=== PATIENT | female | born 1950 | race Caucasian/White ===

== ENCOUNTER 2016-12-13 15:04 | Emergency (ER) | payer MEDICARE, OTHER ==
[~2016-12-13] VITALS: Ht 157.5 cm; Wt 74.8 kg
[~2016-12-13 15:04] MED LIST: CARI-277 PO; PERCOT PO; PROG200C6 PO; THYR60TA PO; ZOLP10TA PO
[2016-12-13] MEDS ORDERED: SODIUM CHLORIDE 0.9% 500 ML IV ONE (15:34)
[2016-12-13] MEDS ORDERED: LORazepam 2MG/ML-1ML VIAL IV ONE (15:45)
[2016-12-13 16:14] LABS: Basophils # (auto) 0 uL; Basophils % (auto) 0.4 % (0.0-2.0); CONDITION Y; Eosinophils # (auto) 0.1 uL; Eosinophils % (auto) 1.8 % (0.0-7.0); Hemoglobin 13.6 g/dL (12.2-16.2); Lymphocytes # (auto) 1.9 uL; Lymphocytes % (auto) 26.6 % (10.0-50.0); Mean Corpuscular Hemoglobin 30.3 pg (28.0-32.0); Mean Corpuscular Hgb Conc. 33.1 g/dL (32.0-36.0); Mean Corpuscular Volume 91.5 fL (80.0-100.0); Mean Platelet Volume 9.3 fL (7.4-10.4); Monocytes # (auto) 0.8 uL; Neutrophils # (auto) 4.4 uL; Neutrophils % (auto) 60.2 % (37.0-80.0); Platelet Count (auto) 284 10^3/uL (140-450); Red Cell Distribution Width 15.1 % (11.6-16.0); White Blood Cell 7.3 10^3/uL (4.4-10.8)
[2016-12-13 16:33] LABS: Albumin 2.9 g/dL (3.4-5.0); BUN/Creatinine Ratio 16.3; Calcium 8.8 mg/dL (8.5-10.1); Potassium 3.3 mmol/L (3.5-5.1)
[2016-12-13 16:35] LABS: Bilirubin, Total 0.5 mg/dL (0.2-1.0); Total Protein 6.6 g/dL (6.4-8.2)
[2016-12-13] MEDS ORDERED: POTASSIUM CHL 20MEQ/100ML 100 ML IV ONE (17:45)
[2016-12-13] MEDS ORDERED: HYDROmorphone HCL 2 MG/ML VL IV ONE (21:00)
[2016-12-13] MEDS ORDERED: ONDANSETRON HCL 4 MG/2 ML VIAL IV ONE (21:00)
[2016-12-13 22:55] VITALS: BP 134/78
== END 2016-12-14 00:43 | disposition home or self-care (01) ==
LOC: EDBD 15:04 → ER 15:05
DX: E87.6 Hypokalemia (principal); M62.831 Muscle spasm of calf; G89.4 Chronic pain syndrome; Z90.710 Acquired absence of both cervix and uterus
CPT/HCPCS: 36415; 72131; 80053; 85025; 94761; 96361; 96365; 96366; 96375; 99285; J1170; J2060; J2405; J3480

== ENCOUNTER 2022-01-14 09:04 | Day surgery (SDC) | payer MEDICARE, OTHER ==
[2022-01-11 14:40] LABS: Basophils # (auto) 0 10 ^3/uL (0-0.2); Basophils % (auto) 0.6 % (0.0-2.0); Eosinophils # (auto) 0.1 10 ^3/uL (0-0.8); Hematocrit 35.3 % (36.0-46.0); Hemoglobin 11.3 g/dL (12.2-16.2); Lymphocytes # (auto) 1.5 10 ^3/uL (0.4-5.4); Lymphocytes % (auto) 30.3 % (10.0-50.0); Mean Corpuscular Hemoglobin 29.4 pg (28.0-32.0); Mean Corpuscular Volume 91.7 fL (80.0-100.0); Monocytes # (auto) 0.7 10 ^3/uL (0-1.3); Monocytes % (auto) 13.4 % (0.0-12.0); Neutrophils # (auto) 2.7 10 ^3/uL (1.6-8.6); Neutrophils % (auto) 53.7 % (37.0-80.0); Nucleated Red Blood Cells % 0.1 %; Red Blood Cells 3.85 10^6/uL (4.0-5.20); Red Cell Distribution Width 13.6 % (11.8-14.3); White Blood Cell 5.1 10^3/uL (4.4-10.8)
[2022-01-11 14:46] LABS: Urine Bacteria FEW /hpf (None Seen); Urine Blood Negative /uL (Negative); Urine Hyaline Cast FEW /lpf (0 - 2); Urine WBC 198 /hpf (0 - 5)
[2022-01-11 16:09] LABS: Albumin 3.8 g/dL (3.4-5.0); Calcium 8.8 mg/dL (8.5-10.1); Potassium 4.9 mmol/L (3.5-5.1)
[2022-01-11 16:13] LABS: BUN/Creatinine Ratio 15.9; Bilirubin, Total 0.4 mg/dL (0.2-1.0); Total Protein 7.5 g/dL (6.4-8.2)
[~2022-01-14] VITALS: Ht 157.5 cm; Wt 66.2 kg
[~2022-01-14 09:04] MED LIST changes: -CARI-277 PO; +CHOL20009 PO; +FLUO20TA34 PO; +GABA-339 PO; +HYDR-4798 PO; +IBUP800T27 PO; +LEVO25TA6 PO; +MULT1TAB70 PO; -PERCOT PO; -PROG200C6 PO; -THYR60TA PO; +TIZA4CAP PO; -ZOLP10TA PO
[2022-01-14] MEDS ORDERED: LIDOCAINE VISCOUS 2% 15ML UD ONE (10:00)
[2022-01-14] MEDS ORDERED: fentaNYL CITRATE 100 MCG/2 ML VL ONE (10:09)
[2022-01-14] MEDS ORDERED: MIDAZOLAM HCL 2MG/2ML 2ml VIAL (1mg/ml) ONE (10:09)
[2022-01-14] MEDS ORDERED: ePHEDrine SULFATE 50 MG/ML AMP IV PRN (10:15)
[2022-01-14] MEDS ORDERED: LABETALOL HCL 5 MG/ML 4ML SYRINGE IV PRN (10:15)
[2022-01-14] MEDS ORDERED: ONDANSETRON HCL 4 MG/2 ML VIAL IV PRN (10:15)
[2022-01-14] MEDS ORDERED: MIDAZOLAM HCL 2MG/2ML 2ml VIAL (1mg/ml) IV PRN (10:15)
[2022-01-14] MEDS ORDERED: HYDROmorphone HCL 2 MG/ML VL/or syr IV PRN (10:15)
[2022-01-14] MEDS ORDERED: MORPHINE SULFATE 4 MG/ML SYR/VIAL IV PRN (10:15)
[2022-01-14] MEDS ORDERED: DexAMETHasone SOD PHOS 10MG/1ML VIAL INJ ONE (10:34)
[2022-01-14] MEDS ORDERED: PROPOFOL 10 MG/ML 20 ML IV ONE (10:34)
[2022-01-14 10:55] VITALS: BP 139/80
== END 2022-01-14 11:25 | disposition home or self-care (01) ==
LOC: GI 09:04
PROVIDERS: ATTEND Internal Medicine Gastroenterology
DX: R10.9 Unspecified abdominal pain (principal); K29.50 Unspecified chronic gastritis without bleeding; E03.9 Hypothyroidism, unspecified; F43.10 Post-traumatic stress disorder, unspecified; F32.A Depression, unspecified; G89.29 Other chronic pain; Z90.710 Acquired absence of both cervix and uterus; Z98.890 Other specified postprocedural states; Z79.899 Other long term (current) drug therapy; Z20.822 Contact with and (suspected) exposure to COVID-19; Z98.84 Bariatric surgery status; Z90.49 Acquired absence of other specified parts of digestive tract; Z98.51 Tubal ligation status
CPT/HCPCS: 36415; 43239; 80053; 81001; 85025; 85730; 88305; 88342; J1100; J2250; J2704; J3010; J7030; U0003

== ENCOUNTER 2022-11-03 16:28 | Emergency (ER) | payer MEDICARE, OTHER ==
[~2022-11-03] VITALS: Ht 157.5 cm; Wt 68.0 kg
[~2022-11-03 16:28] MED LIST changes: -FLUO20TA34 PO; +FLUO20TA36 PO; +IBUP-1456 PO; -IBUP800T27 PO
[2022-11-03] MEDS ORDERED: HYDROcodone-ACET 5/325MG TAB PO ONE (17:00)
[2022-11-03] MEDS ORDERED: IBUPROFEN 400 MG TAB PO ONE (17:00)
[2022-11-03] MEDS ORDERED: TETANUS-DIPTH-ACEL PERTUSSIS 0.5ML SYR Tdap IM ONE (18:30)
[2022-11-03 19:13] VITALS: BP 103/59
== END 2022-11-03 19:49 | disposition home or self-care (01) ==
LOC: ER 16:28
DX: S40.012A Contusion of left shoulder, initial encounter (principal); Z91.040 Latex allergy status; Z79.899 Other long term (current) drug therapy; Z90.710 Acquired absence of both cervix and uterus; W19.XXXA Unspecified fall, initial encounter; Y93.89 Activity, other specified; Y92.89 Other specified places as the place of occurrence of the external cause; Y99.8 Other external cause status
CPT/HCPCS: 73030; 90471; 90715

== ENCOUNTER 2022-12-29 06:06 | Day surgery (SDC) | payer MEDICARE, OTHER ==
[2022-12-28 13:22] LABS: Basophils # (auto) 0 10 ^3/uL (0-0.2); Basophils % (auto) 0.6 % (0.0-2.0); Eosinophils # (auto) 0.1 10 ^3/uL (0-0.8); Eosinophils % (auto) 1.7 % (0.0-7.0); Hematocrit 33.8 % (36.0-46.0); Hemoglobin 10.6 g/dL (12.2-16.2); Lymphocytes # (auto) 1.5 10 ^3/uL (0.4-5.4); Lymphocytes % (auto) 26.5 % (10.0-50.0); Mean Corpuscular Hemoglobin 27.2 pg (28.0-32.0); Mean Corpuscular Hgb Conc. 31.3 g/dL (32.0-36.0); Mean Corpuscular Volume 86.8 fL (80.0-100.0); Monocytes # (auto) 0.6 10 ^3/uL (0-1.3); Monocytes % (auto) 9.7 % (0.0-12.0); Neutrophils # (auto) 3.6 10 ^3/uL (1.6-8.6); Neutrophils % (auto) 61.5 % (37.0-80.0); Red Blood Cells 3.89 10^6/uL (4.0-5.20); Red Cell Distribution Width 16.7 % (11.8-14.3); White Blood Cell 5.8 10^3/uL (4.4-10.8)
[2022-12-28 13:34] LABS: Urine Bacteria NONE SEEN /hpf (None Seen); Urine Blood Negative /uL (Negative); Urine Clarity HAZY (Clear); Urine Color Colorless (Yellow); Urine Protein, UAD Negative (Negative); Urine Specific Gravity 1.012 (1.001-1.035); Urine Urobilinogen Normal (Negative); Urine WBC 27 /hpf (0 - 5); Urine pH 5.5 (5.0-8.0)
[2022-12-28 13:39] LABS: INR 1.01 (0.9-1.15); Partial Thromboplastin Time 26.8 SEC (24.5-34.5); Prothrombin Time 10.6 sec (9.3-11.8)
[2022-12-28 14:06] LABS: Alanine Aminotransferase 23 U/L (7-40); Albumin 4.4 g/dL (3.2-4.8); Alkaline Phosphatase 94 U/L (46-116); Anion Gap 6.7 (5-15); Aspartate Aminotransferase 24 U/L (13-40); BUN/Creatinine Ratio 11.1 (10.0-20.0); Blood Urea Nitrogen 8 mg/dL (9-23); Calcium 9.3 mg/dL (8.5-10.1); Carbon Dioxide 28.3 mmol/L (20-30); Chloride 107 mmol/L (98-107); Glucose 97 mg/dL (74-106); Sodium 142 mmol/L (136-145)
[2022-12-28 14:07] LABS: Total Protein 7.2 g/dL (5.7-8.2)
[2022-12-28 15:08] LABS: Bilirubin, Total 0.5 mg/dL (0.2-1.0)
[~2022-12-29] VITALS: Ht 157.5 cm; Wt 66.2 kg
[~2022-12-29 06:06] MED LIST changes: -FLUO20TA36 PO; -GABA-339 PO; +GABA800T97 PO; -TIZA4CAP PO; +TRAZ-181 PO
[2022-12-29] MEDS ORDERED: ceFAZolin 1GM/50ML 100 ML IV ONE (06:41)
[2022-12-29] MEDS ORDERED: ROPIVACAINE 0.5% (5MG/ML) 20ML AMPULE IJ ONE (07:07)
[2022-12-29] MEDS ORDERED: methylPREDNISolone ACETATE 80 MG/ML VL ONE (07:44)
[2022-12-29] MEDS ORDERED: METOCLOPRAMIDE HCL 5MG/ml INJ 2ml VIAL IV PRN (07:45)
[2022-12-29] MEDS ORDERED: MORPHINE SULFATE INJ 2 MG/ml SYRG IV PRN (07:45)
[2022-12-29] MEDS ORDERED: HYDROmorphone HCL 2 MG/ML VL/or syr IV PRN ×2 (07:45)
[2022-12-29] MEDS ORDERED: LIDOCAINE 1%-Mpf/Epinephrine 1:200,000 30ml VIAL ONE (08:02)
[2022-12-29] MEDS ORDERED: BACITRACIN TOP OINT 1 UD PKG TOP ONE (08:41)
[2022-12-29 08:53] VITALS: TEMP 97.4
[2022-12-29 09:45] VITALS: BP 133/68; PULSE 85; RESP 20; O2SAT 96
== END 2022-12-29 09:55 | disposition home or self-care (01) ==
LOC: SUR 06:06
PROVIDERS: ATTEND Podiatrist Foot & Ankle Surgery
DX: M65.871 Other synovitis and tenosynovitis, right ankle and foot (principal); M19.071 Primary osteoarthritis, right ankle and foot; G89.29 Other chronic pain; M75.01 Adhesive capsulitis of right shoulder
CPT/HCPCS: 20605; 29895; 36415; 80053; 81001; 85025; 85610; 85730; 88305; J0690; J1040; J2001; J2795

== ENCOUNTER 2023-02-16 06:24 | Day surgery (SDC) | payer MEDICARE, OTHER ==
[2023-02-10 14:27] LABS: Basophils # (auto) 0 10 ^3/uL (0-0.2); Basophils % (auto) 0.5 % (0.0-2.0); Eosinophils # (auto) 0.1 10 ^3/uL (0-0.8); Eosinophils % (auto) 2.5 % (0.0-7.0); Hemoglobin 9.8 g/dL (12.2-16.2); Lymphocytes # (auto) 1.7 10 ^3/uL (0.4-5.4); Lymphocytes % (auto) 28.8 % (10.0-50.0); Mean Corpuscular Hemoglobin 27.4 pg (28.0-32.0); Mean Corpuscular Hgb Conc. 31.6 g/dL (32.0-36.0); Mean Corpuscular Volume 86.8 fL (80.0-100.0); Monocytes # (auto) 0.7 10 ^3/uL (0-1.3); Monocytes % (auto) 11.7 % (0.0-12.0); Neutrophils # (auto) 3.3 10 ^3/uL (1.6-8.6); Neutrophils % (auto) 56.5 % (37.0-80.0); Red Blood Cells 3.57 10^6/uL (4.0-5.20); Red Cell Distribution Width 17.6 % (11.8-14.3); White Blood Cell 5.8 10^3/uL (4.4-10.8)
[2023-02-10 14:56] LABS: INR 1.04 (0.9-1.15); Partial Thromboplastin Time 26.9 SEC (24.5-34.5); Prothrombin Time 10.9 sec (9.3-11.8)
[2023-02-10 14:57] LABS: Alanine Aminotransferase 14 U/L (7-40); Alkaline Phosphatase 134 U/L (46-116); Anion Gap 5 (5-15); Aspartate Aminotransferase 17 U/L (13-40); BUN/Creatinine Ratio 9.4 (10.0-20.0); Blood Urea Nitrogen 8 mg/dL (9-23); Calcium 9.3 mg/dL (8.7-10.4); Carbon Dioxide 29 mmol/L (20-30); Chloride 106 mmol/L (98-107); Glucose 132 mg/dL (74-106); Potassium 4.5 mmol/L (3.5-5.1); Sodium 140 mmol/L (136-145); Urine Bacteria NONE SEEN /hpf (None Seen); Urine Blood Negative /uL (Negative); Urine Clarity HAZY (Clear); Urine Color Colorless (Yellow); Urine Protein, UAD Negative (Negative); Urine Specific Gravity 1.017 (1.001-1.035); Urine Urobilinogen Normal (Negative); Urine WBC 1 /hpf (0 - 5); Urine pH 5.5 (5.0-8.0)
[2023-02-10 14:58] LABS: Albumin 4.4 g/dL (3.2-4.8); Bilirubin, Total 0.3 mg/dL (0.2-1.0); Total Protein 7.1 g/dL (5.7-8.2)
[~2023-02-16] VITALS: Ht 157.5 cm; Wt 64.9 kg
[2023-02-16] MEDS ORDERED: ceFAZolin 1GM/50ML 100 ML IV ONE (06:27)
[2023-02-16] MEDS ORDERED: BACITRACIN TOP OINT 1 UD PKG TOP ONE (06:39)
[2023-02-16] MEDS ORDERED: ceFAZolin 1GM VL ONE (06:39)
[2023-02-16] MEDS ORDERED: ROPIVACAINE 0.5% (5MG/ML) 20ML AMPULE IJ ONE (06:39)
[2023-02-16] MEDS ORDERED: MIDAZOLAM HCL 2MG/2ML 2ml VIAL (1mg/ml) ONE (07:48)
[2023-02-16] MEDS ORDERED: fentaNYL CITRATE 100 MCG/2 ML VL ONE (07:48)
[2023-02-16] MEDS ORDERED: MEPERIDINE HCL (25 MG/ML) 1ML VIAL ONE (07:48)
[2023-02-16 09:01] VITALS: RESP 11; TEMP 96.9; O2SAT 95
[2023-02-16] MEDS ORDERED: ePHEDrine SULFATE 50 MG/ML AMP IV PRN (09:15)
[2023-02-16] MEDS ORDERED: MORPHINE SULFATE 4 MG/ML SYR/VIAL IV PRN (09:15)
[2023-02-16] MEDS ORDERED: LABETALOL HCL 5 MG/ML 4ML SYRINGE IV PRN (09:15)
[2023-02-16] MEDS ORDERED: HYDROmorphone HCL 2 MG/ML VL/or syr IV PRN (09:15)
[2023-02-16] MEDS ORDERED: MIDAZOLAM HCL 2MG/2ML 2ml VIAL (1mg/ml) IV PRN (09:15)
[2023-02-16] MEDS ORDERED: ONDANSETRON HCL 4 MG/2 ML VIAL IV PRN (09:15)
[2023-02-16] MEDS ORDERED: DexAMETHasone SOD PHOS 10MG/1ML VIAL INJ ONE (09:21)
[2023-02-16] MEDS ORDERED: PROPOFOL 10 MG/ML 20 ML IV ONE (09:22)
[2023-02-16 09:55] VITALS: BP 140/75; PULSE 69; RESP 14; O2SAT 95
== END 2023-02-16 10:11 | disposition home or self-care (01) ==
LOC: SUR 06:24
PROVIDERS: ATTEND Podiatrist Foot & Ankle Surgery
DX: M20.41 Other hammer toe(s) (acquired), right foot (principal); I10 Essential (primary) hypertension; E03.9 Hypothyroidism, unspecified; Z79.899 Other long term (current) drug therapy; G89.29 Other chronic pain
CPT/HCPCS: 28285; 36415; 80053; 81001; 85025; 85610; 85730; C1713; J0690; J1100; J2175; J2250; J2704; J2795; J3010; L3260

== ENCOUNTER 2023-08-15 11:58 | Emergency (ER) | payer MEDICARE, OTHER ==
[~2023-08-15] VITALS: Ht 157.5 cm; Wt 67.2 kg
[2023-08-15 13:43] LABS: Basophils # (auto) 0 10 ^3/uL (0-0.2); Eosinophils # (auto) 0 10 ^3/uL (0-0.8); Eosinophils % (auto) 0.6 % (0.0-7.0); Hemoglobin 9.8 g/dL (12.2-16.2); Lymphocytes # (auto) 1.4 10 ^3/uL (0.4-5.4); Monocytes # (auto) 0.5 10 ^3/uL (0-1.3); Neutrophils # (auto) 2.8 10 ^3/uL (1.6-8.6); White Blood Cell 4.8 10^3/uL (4.4-10.8)
[2023-08-15 13:44] LABS: Hematocrit 31.3 % (36.0-46.0); Lymphocytes % (auto) 29.8 % (10.0-50.0); Mean Corpuscular Hemoglobin 26.2 pg (28.0-32.0); Mean Corpuscular Hgb Conc. 31.2 g/dL (32.0-36.0); Neutrophils % (auto) 57.6 % (37.0-80.0); Nucleated Red Blood Cells % 0.1 %; Red Blood Cells 3.73 10^6/uL (4.0-5.20); Red Cell Distribution Width 16.9 % (11.8-14.3)
[2023-08-15 13:52] LABS: Alanine Aminotransferase 23 U/L (7-40); Albumin 4.5 g/dL (3.2-4.8); Alkaline Phosphatase 136 U/L (46-116); Anion Gap 6 (5-15); Aspartate Aminotransferase 26 U/L (13-40); BUN/Creatinine Ratio 14.1 (10.0-20.0); Blood Urea Nitrogen 11 mg/dL (9-23); Calcium 9.7 mg/dL (8.7-10.4); Carbon Dioxide 25 mmol/L (20-30); Chloride 107 mmol/L (98-107); Glucose 103 mg/dL (74-106); Magnesium 2.1 mg/dL (1.6-2.6); Potassium 4.1 mmol/L (3.5-5.1); Sodium 138 mmol/L (136-145)
[2023-08-15 13:53] LABS: Bilirubin, Total 0.5 mg/dL (0.2-1.0); Total Protein 7.1 g/dL (5.7-8.2)
[2023-08-15 13:55] LABS: INR 1.01 (0.9-1.15); Partial Thromboplastin Time 26.5 SEC (24.5-34.5); Prothrombin Time 10.6 sec (9.3-11.8)
[2023-08-15] MEDS ORDERED: GABA-339 PO (16:20)
[2023-08-15 19:17] VITALS: BP 141/81; PULSE 85; RESP 20; TEMP 98.6; O2SAT 98
[2023-08-15] MEDS: GABAPENTIN 400 MG CAP PO ONE (19:26)
[2023-08-15] MEDS: NITROGLYCERIN 0.4 MG SL TAB SL ONE (19:29)
== END 2023-08-15 19:15 | disposition home or self-care (01) ==
LOC: EDBD 11:58 → ER 11:58
DX: M62.831 Muscle spasm of calf (principal); R07.9 Chest pain, unspecified; Z90.710 Acquired absence of both cervix and uterus
CPT/HCPCS: 36415; 71045; 80053; 83735; 83880; 84484; 85025; 85610; 85730; 93005